=== PATIENT | female | born 1990 | race Two or more races ===

== ENCOUNTER 2019-09-09 20:11 | Emergency (ER) | payer OTHER ==
[~2019-09-09] VITALS: Ht 152.4 cm; Wt 60.8 kg
[2019-09-09 20:31] VITALS: BP 104/68
--- NOTE | 2019-09-09 21:09 | NUR ---
XRAY AT BEDSIDE.
== END 2019-09-09 21:36 | disposition home or self-care (01) ==
LOC: ER 20:14
DX: S93.491A Sprain of other ligament of right ankle, initial encounter (principal); W01.0XXA Fall on same level from slipping, tripping and stumbling without subsequent striking against object, initial encounter; Y93.89 Activity, other specified; Y92.89 Other specified places as the place of occurrence of the external cause; Y99.8 Other external cause status
CPT/HCPCS: 73610-TC